=== PATIENT | male | born 1950 | race Caucasian/White ===

== ENCOUNTER → 2017-05-26 | Outpatient (CLI) | payer BC ==
[~2017-05-26] MED LIST: ASPIR-LOW81 MG PO; ASPIRIN 81M81 MG/TA2 PO; AVALIDE PO; FERROUS SU325 MG/TAB PO; FOLIC ACID PO; IBU600 MG PO; LIPITOR20 MG PO; MIDAMOR 5MG TAB5 MG PO; NAPROXEN EC500 MG PO; PRINZIDE 12.5 M1 TA1 PO; VITAMIN C500 MG PO; ZOCOR40 MG PO
== END ==
LOC: COL.RAD 15:42
DX: M43.16 Spondylolisthesis, lumbar region (principal)

== ENCOUNTER → 2017-05-26 | Outpatient (CLI) | payer BC | LOC: MHCPAIN 14:29 | DX: G89.29 Other chronic pain (principal); M47.817 Spondylosis without myelopathy or radiculopathy, lumbosacral region; M54.16 Radiculopathy, lumbar region; M53.3 Sacrococcygeal disorders, not elsewhere classified; M48.061 Spinal stenosis, lumbar region without neurogenic claudication; M43.16 Spondylolisthesis, lumbar region | CPT/HCPCS: G0463 ==

== ENCOUNTER → 2017-06-10 | Outpatient (CLI) | payer BC | LOC: MHCPAIN 10:12 | DX: M47.817 Spondylosis without myelopathy or radiculopathy, lumbosacral region (principal); M43.16 Spondylolisthesis, lumbar region | CPT/HCPCS: J1040; Q9967 ==

== ENCOUNTER → 2017-06-29 | Outpatient (CLI) | payer BC | LOC: MHCPAIN 14:26 | DX: G89.29 Other chronic pain (principal); M47.27 Other spondylosis with radiculopathy, lumbosacral region; M48.061 Spinal stenosis, lumbar region without neurogenic claudication; M53.3 Sacrococcygeal disorders, not elsewhere classified; Z87.891 Personal history of nicotine dependence | CPT/HCPCS: G0463 ==

== ENCOUNTER → 2017-07-08 | Outpatient (CLI) | payer BC | LOC: MHCPAIN 15:24 | DX: M47.27 Other spondylosis with radiculopathy, lumbosacral region (principal); M51.36 Other intervertebral disc degeneration, lumbar region | CPT/HCPCS: J1040; Q9967 ==

== ENCOUNTER → 2017-07-23 | Outpatient (CLI) | payer BC | LOC: MHCPAIN 08:44 | DX: G89.29 Other chronic pain (principal); M47.817 Spondylosis without myelopathy or radiculopathy, lumbosacral region; M54.16 Radiculopathy, lumbar region; M53.3 Sacrococcygeal disorders, not elsewhere classified; M48.061 Spinal stenosis, lumbar region without neurogenic claudication | CPT/HCPCS: G0463 ==

== ENCOUNTER → 2017-07-29 | Outpatient (CLI) | payer BC | LOC: MHCPAIN 15:23 | DX: M47.817 Spondylosis without myelopathy or radiculopathy, lumbosacral region (principal); M51.36 Other intervertebral disc degeneration, lumbar region ==

== ENCOUNTER → 2017-08-04 | Outpatient (CLI) | payer BC | LOC: MHCPAIN 13:17 | DX: G89.29 Other chronic pain (principal); M47.817 Spondylosis without myelopathy or radiculopathy, lumbosacral region; M53.3 Sacrococcygeal disorders, not elsewhere classified; M48.061 Spinal stenosis, lumbar region without neurogenic claudication | CPT/HCPCS: G0463 ==

== ENCOUNTER → 2017-08-30 | Outpatient (CLI) | payer BC | LOC: MHCPAIN 13:20 | DX: M47.817 Spondylosis without myelopathy or radiculopathy, lumbosacral region (principal); M51.36 Other intervertebral disc degeneration, lumbar region; M43.16 Spondylolisthesis, lumbar region; M46.96 Unspecified inflammatory spondylopathy, lumbar region | CPT/HCPCS: J1100; J2250; J3010 ==

== ENCOUNTER → 2017-09-29 | Outpatient (CLI) | payer BC, MEDICARE | LOC: MHCPAIN 09:32 | DX: G89.29 Other chronic pain (principal); M47.817 Spondylosis without myelopathy or radiculopathy, lumbosacral region; M54.16 Radiculopathy, lumbar region; M53.3 Sacrococcygeal disorders, not elsewhere classified; M48.061 Spinal stenosis, lumbar region without neurogenic claudication | CPT/HCPCS: G0463 ==

== ENCOUNTER → 2017-10-07 | Outpatient (CLI) | payer BC, MEDICARE | LOC: MHCPAIN 14:41 | DX: M54.16 Radiculopathy, lumbar region (principal); M47.817 Spondylosis without myelopathy or radiculopathy, lumbosacral region | CPT/HCPCS: J1040; Q9967 ==

== ENCOUNTER → 2017-11-25 | Outpatient (CLI) | payer BC, MEDICARE | LOC: COL.RAD 16:28 | DX: M43.16 Spondylolisthesis, lumbar region (principal) ==

== ENCOUNTER 2018-01-20 15:30 | Outpatient (RCR) | payer BC, MEDICARE | END 2018-01-28 09:03 | disposition home or self-care (01) | LOC: WSPT 15:30 | DX: M43.16 Spondylolisthesis, lumbar region (principal); M47.26 Other spondylosis with radiculopathy, lumbar region; M48.061 Spinal stenosis, lumbar region without neurogenic claudication; M62.830 Muscle spasm of back | CPT/HCPCS: G0283-GP ==

== ENCOUNTER → 2018-06-20 | Outpatient (CLI) | payer MEDICARE, OTHER | LOC: MHCPAIN 09:08 | DX: G89.29 Other chronic pain (principal); M47.817 Spondylosis without myelopathy or radiculopathy, lumbosacral region; M54.16 Radiculopathy, lumbar region; M53.3 Sacrococcygeal disorders, not elsewhere classified | CPT/HCPCS: G0463 ==

== ENCOUNTER → 2018-06-23 | Outpatient (CLI) | payer MEDICARE, OTHER | LOC: MHCPAIN 12:42 | DX: M47.817 Spondylosis without myelopathy or radiculopathy, lumbosacral region (principal); M54.16 Radiculopathy, lumbar region; M53.3 Sacrococcygeal disorders, not elsewhere classified | CPT/HCPCS: G0260; J1040; Q9967 ==

== ENCOUNTER → 2018-06-28 | Outpatient (CLI) | payer MEDICARE, OTHER | LOC: COL.RAD 11:11 | DX: Z13.6 Encounter for screening for cardiovascular disorders (principal); Z87.891 Personal history of nicotine dependence ==

== ENCOUNTER → 2018-10-10 | Outpatient (CLI) | payer MEDICARE, OTHER | LOC: MHCPAIN 09:35 | DX: G89.29 Other chronic pain (principal); M47.817 Spondylosis without myelopathy or radiculopathy, lumbosacral region; M54.16 Radiculopathy, lumbar region | CPT/HCPCS: G0463 ==

== ENCOUNTER 2018-11-15 11:50 | Day surgery (SDC) | payer MEDICARE, OTHER ==
[2008-09-03 06:24] VITALS: BP 127/78
[~2018-11-15] VITALS: Ht 177.8 cm; Wt 122.0 kg
[~2018-11-15 11:50] MED LIST changes: +AMOXICILLIN 8751 TAB PO; +HYZAAR 25 MG-101 TAB PO; +NORCO 325 MG-7.1 TAB PO; +NORVASC 5MG5 MG/TAB PO; +PROVENTIL0.09 MG/A1 IH
[2018-11-15 14:18] VITALS: BP 131/74; PULSE 65; TEMP 98.5
--- NOTE | 2018-11-15 14:18 | NUR ---
Patient arrives back from OR alert, denies pain or nausea. Patient monitor applied, vitals stable. Dressing clean/dry/intact. Drain intact with minimal drainage noted in drain tubing.
--- NOTE | 2018-11-15 14:25 | NUR ---
Patient spouse brought to bedside. Dr Powell visiting with patient and patient's spouse at this time.
[2018-11-15 14:30] VITALS: BP 126/75; PULSE 65
[2018-11-15 14:45] VITALS: BP 144/81; PULSE 63
[2018-11-15] MEDS ORDERED: CEPHALEXIN500 M1 PO (14:45)
--- NOTE | 2018-11-15 14:45 | NUR ---
Patient tolerates pudding and water without any nausea. Vitals stable.
[2018-11-15 15:00] VITALS: BP 155/79; PULSE 68
--- NOTE | 2018-11-15 15:00 | NUR ---
Patient reports pain at incision/drain site. Patient offered a PRN pain tablet, and patient requests to take one at this time. Vitals stable.
[2018-11-15 15:15] VITALS: BP 149/57; PULSE 67
--- NOTE | 2018-11-15 15:15 | NUR ---
Patient and spouse educated on how to use drain at this time. 10cc of blood drainage removed from drain at this time.
--- NOTE | 2018-11-15 15:30 | NUR ---
Patient reports pain is better and he is ready to go home. Dismissal instructions gone over with patient and patient's spouse. Drain care also gone over with patient and patient's spouse. All questions answered. Patient and spouse verbalize understanding of dimissal and drain instructions.
--- NOTE | 2018-11-15 15:35 | NUR ---
Patient discharged to visitor enterance via wheelchair. Patient's spouse picks patient up via private vehicle. Patient and spouse leave thanking staff for services.
[2018-11-15 15:48] VITALS: BP 115/78; PULSE 78; TEMP 98.5
== END 2018-11-15 15:35 | disposition home or self-care (01) ==
LOC: SDCO 11:50
DX: L76.32 Postprocedural hematoma of skin and subcutaneous tissue following other procedure (principal); S40.021A Contusion of right upper arm, initial encounter; C43.59 Malignant melanoma of other part of trunk; E78.00 Pure hypercholesterolemia, unspecified; G47.33 Obstructive sleep apnea (adult) (pediatric); I10 Essential (primary) hypertension; K75.9 Inflammatory liver disease, unspecified; J45.20 Mild intermittent asthma, uncomplicated; M81.0 Age-related osteoporosis without current pathological fracture; M19.90 Unspecified osteoarthritis, unspecified site; E66.01 Morbid (severe) obesity due to excess calories; Z68.38 Body mass index [BMI] 38.0-38.9, adult; Z91.048 Other nonmedicinal substance allergy status; Z79.899 Other long term (current) drug therapy; Z79.82 Long term (current) use of aspirin; Z99.89 Dependence on other enabling machines and devices; Z85.828 Personal history of other malignant neoplasm of skin
CPT/HCPCS: J2250; J2704; J3010; J7120

== ENCOUNTER → 2018-12-12 | Outpatient (CLI) | payer MEDICARE, OTHER ==
[~2018-12-12] MED LIST changes: +CEPHALEXIN500 M1 PO
== END ==
LOC: COL.RAD 07:52
DX: M47.812 Spondylosis without myelopathy or radiculopathy, cervical region (principal); R22.1 Localized swelling, mass and lump, neck
CPT/HCPCS: Q9967

== ENCOUNTER 2021-02-07 07:58 | Day surgery (SDC) | payer MEDICARE, OTHER ==
[2008-09-03 06:24] VITALS: BP 127/78
[~2021-02-07] VITALS: Ht 177.8 cm; Wt 129.1 kg
[2021-02-07 08:43] VITALS: BP 118/91; PULSE 89; TEMP 98
[2021-02-07 09:58] VITALS: BP 111/78; PULSE 65
--- NOTE | 2021-02-07 09:58 | NUR ---
Patient returns to [address] per cart and transfers from cart to recliner with one person assist. Temp 98.7. Given water to drink. IV fluids infusing.
[2021-02-07 10:13] VITALS: BP 108/78; PULSE 68
--- NOTE | 2021-02-07 10:13 | NUR ---
Eating toast. Denies pain or nausea. Spouse in room.
[2021-02-07 10:28] VITALS: BP 115/72; PULSE 62
--- NOTE | 2021-02-07 10:28 | NUR ---
IV discontinued and site is free of redness. Dresses self. Dr. Landis here and talks with the patient. All questions answered.
--- NOTE | 2021-02-07 10:35 | NUR ---
Dismissal instructions given and signed. Voices understanding of these.
--- NOTE | 2021-02-07 10:41 | NUR ---
Patient dismissed to home driven by spouse and taken to the front door per wheelchair and assisted into vehicle with instructions in hand.
== END 2021-02-07 10:41 | disposition home or self-care (01) ==
LOC: SDCO 07:58
DX: Z12.11 Encounter for screening for malignant neoplasm of colon (principal); K57.30 Diverticulosis of large intestine without perforation or abscess without bleeding; E78.5 Hyperlipidemia, unspecified; I10 Essential (primary) hypertension; G47.33 Obstructive sleep apnea (adult) (pediatric); M19.90 Unspecified osteoarthritis, unspecified site; J45.30 Mild persistent asthma, uncomplicated; R73.03 Prediabetes; Z87.891 Personal history of nicotine dependence; Z90.89 Acquired absence of other organs; Z79.899 Other long term (current) drug therapy; Z99.89 Dependence on other enabling machines and devices; Z86.010 Personal history of colon polyps
CPT/HCPCS: G0105